=== PATIENT | female | born 1980 | race Caucasian/White ===

== ENCOUNTER → 2019-01-14 | Outpatient (CLI) | payer SELFPAY ==
[2019-01-14 12:49] LABS: BASO % 0.2 % (0.0-1.0); EOS # 0.1 10^3/uL (0.0-0.50); EOS % 1.1 % (0.0-3.0); HEMOGLOBIN 14.1 g/dl (12.0-15.5); LYMPH # 2.1 10^3/uL (1.5-4.5); LYMPH % 34.5 % (24.0-44.0); MEAN CORPUSCULAR HEMOGLOBIN 30.3 pg (27.0-33.0); MEAN CORPUSCULAR HGB CONC 33.6 g/dl (32.0-36.5); MEAN CORPUSCULAR VOLUME 90.1 fl (80.0-96.0); MONO # 0.5 10^3/uL (0.0-0.8); MONO % 7.7 % (0.0-5.0); NEUTROPHILS # 3.5 10^3/uL (1.8-7.7); NEUTROPHILS % 56.2 % (36.0-66.0); PLATELET COUNT, AUTOMATED 265 10^3/uL (150-450); RED BLOOD COUNT 4.66 10^6/uL (4.00-5.40); WHITE BLOOD COUNT 6.1 10^3/uL (4.0-10.0)
[2019-01-14 13:22] LABS: ERYTHROCYTE SEDIMENTATION RATE 12 mm/hr (0-20)
[2019-01-14 13:36] LABS: C REACTIVE PROTEIN QUANTITATIV < 0.30 MG/DL (0.00-0.30); RHEUMATOID FACTOR QUANT < 10.0 IU/ML (<15.0)
--- NOTE | 2019-01-14 13:58 | REP ---
REASON: Iritis. COMPARISON: No priors. FINDINGS: The superior mediastinal structures are midline. The cardiac silhouette is unremarkable in size, shape, and position. The diaphragmatic surfaces of the lungs are regular, and the costophrenic angles are clear. The pulmonary joiner are clear. The imaged osseous structures are intact. IMPRESSION: There is no acute cardiopulmonary disease. Electronically Signed by Alonzo Roque DO 01/14/2019 03:45 P
[2019-01-21 16:19] LABS: ANCA-ATYPICAL <1:20 titer (Neg:<1:20); ANGIOTENSIN 1 CONVERTING ENZYM 29 U/L (14-82); ANTINUCLEAR ANTIBODIES DIRECT Negative (Negative); CYCLIC CITRULLINATED PEPTIDE 6 units (0-19); CYTOPLASMIC NEUTROP AB ANCA-C <1:20 titer (Neg:<1:20); HLA-B27 Positive (.); Lyme Disease IgG Ab 18 kDa Ban Present (.); Lyme Disease IgG Ab 23 kDa Ban Absent (.); Lyme Disease IgG Ab 28 kDa Ban Present (.); Lyme Disease IgG Ab 30 kDa Ban Absent (.); Lyme Disease IgG Ab 39 kDa Ban Absent (.); Lyme Disease IgG Ab 41 kDa Ban Absent (.); Lyme Disease IgG Ab 45 kDa Ban Absent (.); Lyme Disease IgG Ab 58 kDa Ban Absent (.); Lyme Disease IgG Ab 66 kDa Ban Absent (.); Lyme Disease IgG Ab 93 kDa Ban Absent (.); Lyme Disease IgG West Blot Int Negative (.); Lyme Disease IgG/IgM Antibodie <0.91 ISR (0.00-0.90); Lyme Disease IgM Ab 23 kDa Ban Present (.); Lyme Disease IgM Ab 39 kDa Ban Absent (.); Lyme Disease IgM Ab 41 kDa Ban Absent (.); Lyme Disease IgM Ab Quantitati 1.14 index (0.00-0.79); Lyme Disease IgM West Blot Int Negative (.); PERINUCLEAR AB ANCA-P <1:20 titer (Neg:<1:20); TREPONEMA ANTIBODY IgM <0.9 I.V. (.)
== END ==
LOC: M LAB 12:01
PROVIDERS: ATTEND Ophthalmology
DX: H20.00 Unspecified acute and subacute iridocyclitis (principal)

== ENCOUNTER → 2019-03-16 | Outpatient (CLI) | payer OTHER ==
--- NOTE | 2019-03-16 08:55 | REP ---
Eight views cervical spine including flexion and extension views: 03/16/2019. Indication: Neck pain. Comparison: None. Findings: Very minimal straightening of the cervical lordosis is present. There is no acute fracture, subluxation or dislocation. There is no instability. Sequelae of surgical fixation of multiple facial bone fractures are noted. Impression: No fracture or evidence of instability. Electronically Signed by Rasta Carnes DO 03/16/2019 08:46 A
--- NOTE | 2019-03-16 17:54 | REP ---
Clinical: Nontraumatic left hip pain. Technique: Frontal view of the pelvis with neutral and frog lateral views of the left hip. Findings: Osseous structures and joint spaces are intact and normal. Hip joints appear symmetric on frontal pelvic radiograph. No acute fracture dislocation. No evidence for healed injury. No significant degenerative or congenital abnormalities are appreciated. Surrounding soft tissues are unremarkable. Impression: Normal pelvis and left hip series. Electronically Signed by Mahendra Horn MD 03/16/2019 05:46 P
--- NOTE | 2019-03-16 17:55 | REP ---
Clinical: Left hip pain. Technique: Four views of the bilateral sacroiliac joints. Findings: Bilateral sacroiliac joints and associated osseous structures are intact, symmetric, and normal for age. Impression: Normal bilateral sacroiliac joints. Electronically Signed by Mahendra Horn MD 03/16/2019 05:47 P
[2019-03-18 14:12] LABS: Lyme Disease IgG Ab 18 kDa Ban Present (.); Lyme Disease IgG Ab 23 kDa Ban Absent (.); Lyme Disease IgG Ab 28 kDa Ban Present (.); Lyme Disease IgG Ab 30 kDa Ban Absent (.); Lyme Disease IgG Ab 39 kDa Ban Absent (.); Lyme Disease IgG Ab 41 kDa Ban Absent (.); Lyme Disease IgG Ab 45 kDa Ban Absent (.); Lyme Disease IgG Ab 58 kDa Ban Absent (.); Lyme Disease IgG Ab 66 kDa Ban Absent (.); Lyme Disease IgG Ab 93 kDa Ban Absent (.); Lyme Disease IgG West Blot Int Negative (.); Lyme Disease IgG/IgM Antibodie <0.91 ISR (0.00-0.90); Lyme Disease IgM Ab 23 kDa Ban Present (.); Lyme Disease IgM Ab 39 kDa Ban Absent (.); Lyme Disease IgM Ab 41 kDa Ban Absent (.); Lyme Disease IgM Ab Quantitati 1.07 index (0.00-0.79); Lyme Disease IgM West Blot Int Negative (.)
== END ==
LOC: M LAB 07:10
PROVIDERS: ATTEND Internal Medicine Infectious Disease
DX: R76.8 Other specified abnormal immunological findings in serum (principal); M25.552 Pain in left hip; M54.2 Cervicalgia

== ENCOUNTER 2019-05-13 15:07 | Emergency (ER) | payer OTHER ==
[~2019-05-13] VITALS: Ht 162.6 cm; Wt 79.5 kg
[2019-05-13] MEDS ORDERED: ZOFR4TAB16 PO (15:15)
[2019-05-13] MEDS ORDERED: REGLAN (15:15)
[2019-05-13] MEDS ORDERED: ONDANSETRON 4MG/2ML VIAL (J2405) IV ONE (15:30)
[2019-05-13] MEDS ORDERED: NS 1,000 ML IV ONE ×2 (15:30)
[2019-05-13] MEDS ORDERED: ONDA4TAB6 PO (15:48)
[2019-05-13] MEDS ORDERED: KETOROLAC 30 MG/ML VIAL (J1885) IV ONE (16:30)
[2019-05-13 17:31] VITALS: BP 137/71
== END 2019-05-13 17:34 | disposition home or self-care (01) ==
LOC: M ED 15:07
DX: R11.2 Nausea with vomiting, unspecified (principal); R19.7 Diarrhea, unspecified; Z79.899 Other long term (current) drug therapy; Z88.1 Allergy status to other antibiotic agents
CPT/HCPCS: 96361; 96374; 96375; 99283; J1885; J2405

== ENCOUNTER → 2019-06-22 | Outpatient (REF) | payer OTHER ==
[~2019-06-22] MED LIST: ONDA4TAB6 PO; REGLAN; ZOFR4TAB16 PO
== END ==
LOC: M SFHCCLAY 14:42
PROVIDERS: ATTEND Family Medicine
DX: R53.83 Other fatigue (principal); Z80.0 Family history of malignant neoplasm of digestive organs; Z13.79 Encounter for other screening for genetic and chromosomal anomalies

== ENCOUNTER → 2019-06-23 | Outpatient (REF) | payer OTHER | LOC: M SFHCWAGY 13:38 | PROVIDERS: ATTEND Nurse Practitioner Women's Health | DX: Z12.4 Encounter for screening for malignant neoplasm of cervix (principal) ==

== ENCOUNTER → 2020-11-27 | Outpatient (REF) | payer OTHER | LOC: M LABDRAWC 15:52 | PROVIDERS: ATTEND Advanced Practice Midwife | DX: N91.2 Amenorrhea, unspecified (principal) ==

== ENCOUNTER 2020-12-06 00:49 | Emergency (ER) | payer OTHER ==
[~2020-12-06] VITALS: Ht 162.6 cm; Wt 85.5 kg
[2020-12-06 01:47] LABS: BASO % 0.2 % (0.0-1.0); EOS # 0.1 10^3/uL (0.0-0.5); EOS % 1.6 % (0.0-3.0); HEMATOCRIT 35.4 % (36.0-47.0); HEMOGLOBIN 11.5 g/dl (12.0-15.5); LYMPH # 2.3 10^3/uL (1.5-5.0); LYMPH % 27.8 % (24.0-44.0); MEAN CORPUSCULAR HEMOGLOBIN 29.8 pg (27.0-33.0); MEAN CORPUSCULAR HGB CONC 32.5 g/dl (32.0-36.5); MEAN CORPUSCULAR VOLUME 91.7 fl (80.0-96.0); MONO # 0.8 10^3/uL (0.0-0.8); MONO % 9.7 % (2.0-8.0); NEUTROPHILS % 60.5 % (36.0-66.0); PLATELET COUNT, AUTOMATED 242 10^3/uL (150-450); RED BLOOD COUNT 3.86 10^6/uL (4.00-5.40); WHITE BLOOD COUNT 8.3 10^3/uL (4.0-10.0)
[2020-12-06 03:09] LABS: ALBUMIN 3.3 GM/DL (3.2-5.2); ALT/SGPT 19 U/L (12-78); BILIRUBIN,DIRECT 0.1 MG/DL (0.0-0.2); BILIRUBIN,TOTAL 0.3 MG/DL (0.2-1.0); BLOOD UREA NITROGEN 11 MG/DL (7-18); CALCIUM LEVEL 8.5 MG/DL (8.5-10.1); CARBON DIOXIDE LEVEL 25 MEQ/L (21-32); CHLORIDE LEVEL 107 MEQ/L (98-107); CREATININE FOR GFR 0.79 MG/DL (0.55-1.30); GLOMERULAR FILTRATION RATE > 60.0 (>60); GLUCOSE, FASTING 91 MG/DL (70-100); HCG, SERUM QUANTITATIVE 34131 MIU/ML; LIPASE 75 U/L (73-393); POTASSIUM SERUM 4.3 MEQ/L (3.5-5.1); SODIUM LEVEL 140 MEQ/L (136-145); TOTAL PROTEIN 6.8 GM/DL (6.4-8.2)
--- NOTE | 2020-12-06 04:12 | REPVR ---
PROCEDURE INFORMATION: Exam: US First Trimester, Transabdominal and US , Transvaginal Exam date and time: 12/06/2020 2:29 AM Age: 40 years old Clinical indication: Lmp or gestational age (in weeks): 7w3d; Antepartum complications; Bleeding; ; Additional info: Vaginal bleeding TECHNIQUE: Imaging protocol: Real-time transabdominal obstetrical ultrasound of the maternal pelvis and a first trimester , less than 14 weeks 0 days, with image documentation. Transvaginal imaging was used for better evaluation of the fetus, adnexa, and/or cervix. COMPARISON: No relevant prior studies available. FINDINGS: Gestation: No evidence of intrauterine at this time. MATERNAL: Uterus: Uterus measures 10.5 x 5.6 x 6.1 cm. No myometrial mass. Endometrium is thickened measuring 1.9 cm. Heterogeneous echogenicity within the endocervical canal, likely blood products. Cervix otherwise unremarkable. Cervix: See "Uterus" finding. Right adnexa: Right ovary measures 3.6 x 2.6 x 3.8 cm and is unremarkable. Blood flow present within the right ovary. No adnexal mass. Left adnexa: Left ovary measures 4.9 x 4.2 x 4.8 cm and contains a 3.5 x 3.2 x 3.2 cm cyst, likely corpus luteum. Blood flow present within the left ovary. No adnexal mass. Intraperitoneal space: Trace free fluid. IMPRESSION: 1. No evidence of intrauterine at this time. Endometrium is thickened measuring 1.9 cm. Heterogeneous echogenicity within the endocervical canal, likely blood products. Differential considerations include failed or very early IUP which is not yet seen. Ectopic cannot be entirely excluded, however, no adnexal masses are visualized. Recommend clinical correlation as well as correlation with serial beta hCG and short-term follow-up ultrasound as clinically warranted. 2. Left ovarian cyst measuring 3.5 cm, likely corpus luteum. 3. Trace free fluid. Electronically signed by: Mahendra Escobar On 12/06/2020 04:11:38 AM
[2020-12-06] MEDS ORDERED: RHOGAM 300 MCG (1500 IU) INJ (J2790) IM ONE (04:40)
[2020-12-06 05:00] VITALS: BP 94/52
== END 2020-12-06 05:27 | disposition home or self-care (01) ==
LOC: M ED 00:49
DX: O03.4 Incomplete spontaneous abortion without complication (principal); Z87.59 Personal history of other complications of pregnancy, childbirth and the puerperium; O99.341 Other mental disorders complicating pregnancy, first trimester; O09.521 Supervision of elderly multigravida, first trimester; O34.81 Maternal care for other abnormalities of pelvic organs, first trimester; Z88.1 Allergy status to other antibiotic agents
CPT/HCPCS: 36415; 76801; 76817; 80048; 80076; 83690; 84702; 85025; 86850; 86900; 86901; 93976; 96372; 99284; J2790

== ENCOUNTER → 2021-02-08 | Outpatient (CLI) | payer OTHER ==
--- NOTE | 2021-02-08 09:43 | REP ---
INDICATION: ACUTE LEFT FOOT/ANKLE PAIN; TRAUMA. Persistent pain 3 weeks after a fall. COMPARISON: None. TECHNIQUE: Four views of the left foot. FINDINGS: Four views of the left foot demonstrate normal bones, joints, and soft tissues. No fracture or subluxation is seen. No opaque foreign body noted. There is a plantar calcaneal spur. IMPRESSION: Plantar heel spur. No fracture or subluxation. <Electronically signed by Alexis Chambers > 02/08/21 09
--- NOTE | 2021-02-08 09:43 | REP ---
INDICATION: ACUTE ANKLE PAIN. COMPARISON: None. TECHNIQUE: Four views of the right ankle are provided. FINDINGS: There is mild anterior soft tissue swelling. Ankle mortise is intact. No fracture or subluxation is seen. A plantar calcaneal spur is noted. IMPRESSION: Mild anterior soft tissue swelling. Plantar heel spur. No fracture seen. <Electronically signed by Alexis Chambers > 02/08/21 0904
== END ==
LOC: M CLY 09:05
PROVIDERS: ATTEND Family Medicine
DX: M25.572 Pain in left ankle and joints of left foot (principal); M77.32 Calcaneal spur, left foot; M79.89 Other specified soft tissue disorders

== ENCOUNTER → 2021-04-06 | Outpatient (CLI) | payer BC, OTHER ==
[~2021-04-06] MED LIST changes: +CELE10TA PO; +CITA40TA4 PO
== END ==
LOC: M LABSMTC 11:26
PROVIDERS: ATTEND Anesthesiology
DX: Z01.812 Encounter for preprocedural laboratory examination (principal); Z20.822 Contact with and (suspected) exposure to COVID-19

== ENCOUNTER 2021-04-11 10:14 | Day surgery (SDC) | payer BC ==
[~2021-04-11] VITALS: Ht 165.1 cm; Wt 85.3 kg
[~2021-04-11 10:14] MED LIST changes: +NS 1,000 ML IV ONE
--- OUTSIDE RECORDS SUMMARY | 2021-04-11 10:23 | CCD | Continuity of Care Document ---
Author Author Beth TALAMANTES [place] Organization Unknown Address [address] [place] [address], [address] [place] [address] Phone [phone] Care Team Providers Care Accordion Tuner Name Role Phone AUTM Unavailable Elaine Alan D.O. AUTM [phone] Problems Description No Information Available Social History Type Date Description Comments Sex Unknown ETOH Use Denies alcohol use Tobacco Use Start: Unknown Denies Smoking Recreational Drug Use Denies Drug Use Allergies, Adverse Reactions, Alerts Active Allergies Criticality Reaction | Severity Comments Date Keflex Unable to assess criticality Vomiting | Severe 2020 Medications Active Medications SIG Qnty Indications Ordering Provide r Date Suprep Bowel Prep Kit 17.5-3.13-1.6GM/177ML Solution take per doctor's bowel prep instructions. 354ml Z12.1 1 Mike Churchill, 11/22/2020 Celexa 40mg Tablets 1 tab po qd Unknown Immunizations Description No Information Available Vital Signs Date Vital Result Comment 02/26/2021 1:36pm BP Systolic 118 mmHg BP Diastolic 68 mmHg Body Temperature 98.4 F Height 65 inches 5'5" Weight 190.00 lb BMI (Body Mass Index) 31.6 kg/m2 Wiley Body Weight 125 lb Weight 86.184 kg BSA (Body Surface Area) 1.94 m2 2020 2:33pm BP Systolic 118 mmHg BP Diastolic 70 mmHg Height 65 inches 5'5" Weight 186.00 lb BMI (Body Mass Index) 30.9 kg/m2 Wiley Body Weight 125 lb Weight 84.370 kg BSA (Body Surface Area) 1.92 m2 Results Description No Information Available Procedures Date Code Description Status 02/26/2021 30978 Office/Outpatient Established Mo d MDM 30-39 Min Completed 2020 50426 Office/Outpatient New Moderate M DM 45-59 Minutes Completed Medical Devices Description No Information Available Encounters Type Date Location Provider Dx Diagnosis Office Visit 02/26/2021 1:30p [facility] ENZO Mcintyre K62.5 Hemorrhage of anus and rectum K59.00 Constipation, unspecified K64.9 Unspecified hemorrhoids Office Visit 2020 2:00p [facility] ENZO Mcintyre K62.5 Hemorrhage of anus and rectum K59.00 Constipation, unspecified K64.9 Unspecified hemorrhoids Assessments Date Code Description Provider 02/26/2021 K62.5 Hemorrhage of anus and rectum ENZO Monaco 02/26/2021 K59.00 Constipation, unspecified ENZO Hoffman 02/26/2021 K64.9 Unspecified hemorrhoids ENZO Graham 2020 K62.5 Hemorrhage of anus and rectum ENZO Monaco 2020 K59.00 Constipation, unspecified ENZO Hoffman 2020 K64.9 Unspecified hemorrhoids ENZO Graham Plan of Treatment Future Appointment(s):* 04/24/2021 11:00 am - ENZO Hoffman at [facility] * 04/11/2021 11:15 am - Mike Churchill DO at [facility] 02/26/2021 - ENZO Hoffman* K62.5 Hemorrhage of anus and rectum * K59.00 Constipation, unspecified * K64.9 Unspecified hemorrhoids Functional Status Description No Information Available Mental Status Description No Information Available Referrals Description No Information Available
--- OUTSIDE RECORDS SUMMARY | 2021-04-11 10:23 | CCD | Continuity of Care Document ---
Author Author Beth TALAMANTES [place] Organization Unknown Address [address] [place] [address], [address] [place] [address] Phone [phone] Care Team Providers Care Flume Maker Name Role Phone AUTM Unavailable Elaine Alan D.O. AUTM [phone] Problems Description No Information Available Social History [...] lb BMI (Body Mass Index) 31.6 kg/m2 Williams Body Weight 125 lb Weight 86.184 kg BSA (Body Surface Area) 1.94 m2 2020 2:33pm BP Systolic 118 mmHg BP Diastolic 70 mmHg Height 65 inches 5'5" Weight 186.00 lb BMI (Body Mass Index) 30.9 kg/m2 Williams Body Weight 125 lb Weight 84.370 kg BSA (Body Surface Area) 1.92 m2 Results Description No Information Available Procedures Date Code Description Status 2020 98940 Office/Outpatient New Moderate M DM 45-59 Minutes Completed Medical Devices Description No Information Available Encounters Type Date Location Provider Dx Diagnosis Office Visit 2020 2:00p [facility] ENZO Mcintyre K62.5 Hemorrhage of anus and rectum K59.00 Constipation, unspecified K64.9 Unspecified hemorrhoids Assessments Date Code Description Provider 2020 K62.5 Hemorrhage of anus and rectum ENZO Monaco 2020 K59.00 Constipation, unspecified ENZO Hoffman 2020 K64.9 Unspecified hemorrhoids ENZO Graham Plan of Treatment No Information Available Functional Status Description No Information Available Mental Status Description No Information Available Referrals Description No Information Available
--- OUTSIDE RECORDS SUMMARY | 2021-04-11 10:23 | CCD ---
Author Author [facility] Organization [facility] Address Unknown Phone Unavailable Care Team Providers Care Senior Quality Control Inspector Name Role Phone Ev RUSSO TENANT COORDINATOR Unavailable Unavailable GEIN, M ROXY TENANT COORDINATOR Unavailable Unavailable GEHERIN, M ROXY TENANT COORDINATOR Unavailable Unavailable GEIN, M ROXY TENANT COORDINATOR Unavailable Unavailable JULIAHERIN, M ROXY TENANT COORDINATOR Unavailable Unavailable GEHERIN, M ROXY TENANT COORDINATOR Unavailable Unavailable GEHERIN, M ROXY TENANT COORDINATOR Unavailable Unavailable GEHERIN, M ROXY TENANT COORDINATOR Unavailable Unavailable GEIN, M ROXY TENANT COORDINATOR Unavailable Unavailable GEHERIN, M ROXY TENANT COORDINATOR Unavailable Unavailable Ev Fernando PA-C Unavailable Unavailable Ev Fernando PA-C Unavailable Unavailable Jeramie Branham MD Unavailable Unavailable Jeramie Branham MD Unavailable Unavailable Jeramie Branham MD Unavailable Unavailable Jeramie Branham MD Unavailable Unavailable Jeramie Branham MD Unavailable Unavailable Jeramie Branham MD Unavailable Unavailable Jeramie Branham MD Unavailable Unavailable Jeramie Branham MD Unavailable Unavailable Jeramie Branham MD Unavailable Unavailable Yonas, Jeramie Mg MD Unavailable Unavailable Yonas, Jeramie Mg MD Unavailable Unavailable Yonas, Jeramie Mg MD Unavailable Unavailable Yonas, Jeramie Mg MD Unavailable Unavailable Yonas, Jeramie Mg MD Unavailable Unavailable Yonas, Jeramie Mg MD Unavailable Unavailable Yonas, Jeramie Mg MD Unavailable Unavailable Yonas, Jeramie Mg MD Unavailable Unavailable Yonas, Jeramie Mg MD Unavailable Unavailable Yonas, Jeramie Mg MD Unavailable Unavailable Yonas, Jeramie Mg MD Unavailable Unavailable Yonas, Jeramie Mg MD Unavailable Unavailable Yonas, A Haritha NIÑO Unavailable Unavailable Yonas, Jeramie Mg MD Unavailable Unavailable Yonas, Jeramie Mg MD Unavailable Unavailable Yonas, Jeramie Mg MD Unavailable Unavailable Yonas, Jeramie Mg MD Unavailable Unavailable Yonas, A Haritha NIÑO Unavailable Unavailable Yonas, A Haritha NIÑO Unavailable Unavailable Yonas, A Haritha NIÑO Unavailable Unavailable Yonas, A Haritha NIÑO Unavailable Unavailable Yonas, A Haritha NIÑO Unavailable Unavailable Yonas, A Haritha NIÑO Unavailable Unavailable Yonas, A Haritha NIÑO Unavailable Unavailable Yonas, A Haritha NIÑO Unavailable Unavailable Yonas, A Haritha NIÑO Unavailable Unavailable Yonas, A Haritha NIÑO Unavailable Unavailable Yonas, A Haritha NIÑO Unavailable Unavailable Yonas, A Haritha NIÑO Unavailable Unavailable Yonas, A Haritha NIÑO Unavailable Unavailable Yonas, Jeramie Mg MD Unavailable Unavailable Yonas, Jeramie Mg MD Unavailable Unavailable Yonas, A Haritha NIÑO Unavailable Unavailable Yonas, A Haritha NIÑO Unavailable Unavailable Yonas, A Haritha NIÑO Unavailable Unavailable Yonas, A Haritha NIÑO Unavailable Unavailable Yonas, A Haritha NIÑO Unavailable Unavailable Yonas, A Haritha NIÑO Unavailable Unavailable Yonas, Jeramie Mg MD Unavailable Unavailable Yonas, Jeramie Mg MD Unavailable Unavailable Yonas, Jeramie Mg MD Unavailable Unavailable Yonas, Jeramie Mg MD Unavailable Unavailable Yonas, Jeramie Mg MD Unavailable Unavailable Yonas, Jeramie Mg MD Unavailable Unavailable Yonas, Jeramie Mg MD Unavailable Unavailable Yonas, Jeramie Mg MD Unavailable Unavailable Yonas, Jeramie Mg MD Unavailable Unavailable Yonas, Jeramie Mg MD Unavailable Unavailable Yonas, Jeramie Mg MD Unavailable Unavailable Yonas, A Haritha NIÑO Unavailable Unavailable Yonas, A Haritha NIÑO Unavailable Unavailable Yonas, A Haritha NIÑO Unavailable Unavailable Yonas, A Haritha NIÑO Unavailable Unavailable Yonas, A Haritha NIÑO Unavailable Unavailable Yonas, Jeramie Mg MD Unavailable Unavailable Yonas, Jeramie Mg MD Unavailable Unavailable Yonas, Jeramie Mg MD Unavailable Unavailable Yonas, Jeramie Mg MD Unavailable Unavailable Yonas, Jeramie Mg MD Unavailable Unavailable Yonas, Jeramie Mg MD Unavailable Unavailable Yonas, Jeramie Mg MD Unavailable Unavailable Yonas, Jeramie Mg MD Unavailable Unavailable Yonas, Jeramie Mg MD Unavailable Unavailable Yonas, Jeramie Mg MD Unavailable Unavailable Yonas, Jeramie Mg MD Unavailable Unavailable Yonas, Jeramie Mg MD Unavailable Unavailable Yonas, Jeramie Mg MD Unavailable Unavailable Yonas, Jeramie Mg MD Unavailable Unavailable Yonas, Jeramie Mg MD Unavailable Unavailable Yonas, Jeramie Mg MD Unavailable Unavailable Yonas, Jeramie Mg MD Unavailable Unavailable Yonas, Jeramie Mg MD Unavailable Unavailable Yonas, Jeramie Mg MD Unavailable Unavailable Dwello PA PA, Angie Unavailable Unavailable Dwello PA PA, Angie Unavailable Unavailable Dwello PA PA, Angie Unavailable Unavailable Dwello PA PA, Angie Unavailable Unavailable Dwello PA PA, Angie Unavailable Unavailable Dwello PA PA, Angie Unavailable Unavailable Dwello PA PA, Angie Unavailable Unavailable NEWBY, A MASON MD Unavailable Unavailable NEWBY, Jeramie MASON MD Unavailable Unavailable NEWBY, Jeramie MASON MD Unavailable Unavailable NEWBY, Jeramie MASON Unavailable Unavailable NEWBY, Jeramie MASON Unavailable Unavailable NEWBY, Jeramie MASON Unavailable Unavailable NEWBY, Jeramie MASON MD Unavailable Unavailable NEWBY, Jeramie MASON Unavailable Unavailable NEWBY, Jeramie MASON Unavailable Unavailable NEWBY, Jeramie MASON Unavailable Unavailable NEWBY, Jeramie MASON Unavailable Unavailable NEWBY, Jeramie MASON Unavailable Unavailable NEWBY, Jeramie MASON MD Unavailable Unavailable NEWBY, Jeramie MASON MD Unavailable Unavailable NEWBY, Jeramie MASON Unavailable Unavailable NEWBY, Jeramie MASON Unavailable Unavailable NEWBY, Jeramie MASON Unavailable Unavailable NEWBY, Jeramie MASON Unavailable Unavailable NEWBY, Jeramie MASON Unavailable Unavailable NEWBY, Jeramie MASON Unavailable Unavailable NEWBY, Jeramie MASON Unavailable Unavailable NEWBY, Jeramie ENGLISHMASON Unavailable Unavailable NEWBY, Jeramie MASON Unavailable Unavailable NEWBY, Jeramie ENGLISHMASON Unavailable Unavailable NEWBY, Jeramie MASON Unavailable Unavailable NEWBY, Jeramie MASON Unavailable Unavailable NEWBY, Jeramie MASON Unavailable Unavailable NEWBY, Jeramie MASON Unavailable Unavailable NEWBY, Jeramie MASON Unavailable Unavailable NEWBY, Jeramie ENGLISHMASON Unavailable Unavailable Adis Costa MD Unavailable Unavailable Adis Costa MD Unavailable Unavailable Adis Costa MD Unavailable Unavailable Adis Costa MD Unavailable Unavailable Adis Costa MD Unavailable Unavailable Adis Costa MD Unavailable Unavailable Adis Costa MD Unavailable Unavailable Adis Costa MD Unavailable Unavailable Adis Costa MD Unavailable Unavailable Adis Costa MD Unavailable Unavailable Adis Costa MD Unavailable Unavailable Adis Costa MD Unavailable Unavailable Adis Costa MD Unavailable Unavailable Adis Costa MD Unavailable Unavailable Adis Costa MD Unavailable Unavailable Adis Costa MD Unavailable Unavailable Adis Costa MD Unavailable Unavailable Adis Costa MD Unavailable Unavailable Adis Costa MD Unavailable Unavailable Adis Costa MD Unavailable Unavailable Adis Costa MD Unavailable Unavailable Adis Costa MD Unavailable Unavailable Adis Costa MD Unavailable Unavailable Adis Costa MD Unavailable Unavailable Adis Costa MD Unavailable Unavailable Cheng, L Anne RPA Unavailable Unavailable Cheng, L Anne RPA Unavailable Unavailable Cheng, L Anne RPA Unavailable Unavailable Cheng, L Anne RPA Unavailable Unavailable Cheng, L Anne RPA Unavailable Unavailable Cheng, L Anne RPA Unavailable Unavailable Cheng, L Anne RPA Unavailable Unavailable Cheng, L Anne RPA Unavailable Unavailable Cheng, L Anne RPA Unavailable Unavailable Cheng, L Anne RPA Unavailable Unavailable Cheng, L Anne RPA Unavailable Unavailable Cheng, L Anne RPA Unavailable Unavailable Cheng, L Anne RPA Unavailable Unavailable Cheng, L Anne RPA Unavailable Unavailable Cheng, L Anne RPA Unavailable Unavailable Cheng, L Anne RPA Unavailable Unavailable Cheng, L Anne RPA Unavailable Unavailable Cheng, L Anne RPA Unavailable Unavailable Cheng, L Anne RPA Unavailable Unavailable Cheng, L Anne RPA Unavailable Unavailable Cheng, L Anne RPA Unavailable Unavailable Cheng, L Anne RPA Unavailable Unavailable Cheng, L Anne RPA Unavailable Unavailable Cheng, L Anne RPA Unavailable Unavailable Cheng, L Anne RPA Unavailable Unavailable Cheng, L Anne RPA Unavailable Unavailable Cheng, L Anne RPA Unavailable Unavailable Cheng, L Anne RPA Unavailable Unavailable Cheng, L Anne RPA Unavailable Unavailable Cheng, L Anne RPA Unavailable Unavailable Cheng, L Anne RPA Unavailable Unavailable Cheng, L Anne RPA Unavailable Unavailable Re-disclosure Warning The records that you are about to access may contain information from federally-assisted alcohol or drug abuse programs. If such information is present, then the following federally mandated warning applies: This information has been disclosed to you from records protected by federal confidentiality rules (42 CFR part 2). The federal rules prohibit you from making any further disclosure of this information unless further disclosure is expressly permitted by the written consent of the person to whom it pertains or as otherwise permitted by 42 CFR part 2. A general authorization for the release of medical or other information is NOT sufficient for this purpose. The Federal rules restrict any use of the information to criminally investigate or prosecute any alcohol or drug abuse patient.The records that you are about to access may contain highly sensitive health information, the redisclosure of which is protected by Article 27-F of the [facility] Public Health law. If you continue you may have access to information: Regarding HIV / AIDS; Provided by facilities licensed or operated by the [facility] Office of Mental Health; or Provided by the [facility] Office for People With Developmental Disabilities. If such information is present, then the following [facility] mandated warning applies: This information has been disclosed to you from confidential records which are protected by state law. State law prohibits you from making any further disclosure of this information without the specific written consent of the person to whom it pertains, or as otherwise permitted by law. Any unauthorized further disclosure in violation of state law may result in a fine or detention sentence or both. A general authorization for the release of medical or other information is NOT sufficient authorization for further disc losure. Allergies and Adverse Reactions Type Description Substance Reaction Status Data Source(s ) Drug allergy cephalexin cephalexin Nausea/Vomit/Gastric MO [facility] Propensity to adverse reactions cephalexin Cephalexin Acti ve [facility] ([facility]) Encounters Encounter Providers Location Date Indications Data Source(s ) Outpatient Attender: Jocelyn Costa MD 1 12:20:06 PM EDT - 03/05/2021 01:20:04 PM EDT [facility] ([facility]) Outpatient Attender: Anne Vegas/Luis/Ramirez/R ruddy 02/26/2021 01:30:00 PM EDT [facility] ([facility]) Emergency Attender: MASON NEWBY MDAttender: Kavin macedo PA-C 01/14/2021 06:49:00 AM EDT - 01/14/2021 08:00:00 AM EDT COUGH,R/O ESSIE Jenkins [facility] COUGH,R/O COVID Patient discharged. Attender: Haritha Branham MD JERZY Wells 05/2021 12:53:00 PM EDT - 12/11/2020 12:53:00 PM EDT [facility] ([facility]) Attender: Angie GIRALDO JERZY Wells 10/2020 10:45:00 AM EDT - 12/05/2020 10:45:00 AM EDT Encntr screen for infections w sexl mode of transmissOther sex counselingEncounter for elective termination of pregnancyProblems related to unwanted pregnancyEncounter for oth general cnsl and advice on contraceptionEncounter for test, result positive [facility] ([facility]) Encntr screen for infections w sexl mode of transmiss Other sex counseling Encounter for elective termination of pr egnancy Problems related to unwanted Encounter for oth general cnsl and advic e on contraception Encounter for test, result pos itive Outpatient Attender: Anne Vegas/Luis/Ramirez/Lizeth eindl 2020 02:00:00 PM EDT [facility] ([facility]) Outpatient Attender: Jocelyn Costa MD 0 07/21/2020 02:35:16 PM EST - 07/21/2020 03:50:31 PM EST [facility] ([facility]) Outpatient Attender: ROXY RUSSO NP 01:24:25 PM EST - 05/13/2019 01:43:27 PM EST [facility] ([facility]) Immunizations Vaccine Date Status Description Data Source(s) COVID-19 VACCINE Arian 02/19/2021 12:00:00 AM EDT completed [facility] Vaccine Series Complete: YESThis Data wa s Submitted to [facility]. INFLUENZA VIRUS VACCINE QUADRIVALENT 2019- (6 MOS AN D UP) 05/08/2020 12:00:00 AM EST completed [facility] Medications Medication Brand Name Start Date Product Form Dose Route Admi nistrative Instructions Pharmacy Instructions Status Indications Reaction Description Data Source(s) SUPREP BOWEL PREP KIT 17.5-3.13-1.6 gram SODIUM, POTASSIUM,M AG SULFATES 03/27/2021 12:00:00 AM EDT [place] [address] 'S PREP INSTRUCTIONS TAKE PER 'S PREP INSTRUCTIONS SOLD: 04/03/2021 [facility] Citalopram 40 MG Oral Tablet CITALOPRAM HYDROBROMIDE 02/18/2021 12:00:00 AM EDT tablet 90 TAKE ONE TABLET BY MOUTH EVERY D AY TAKE ONE TABLET BY MOUTH EVERY DAY SOLD: 02/20/2021 [facility] Citalopram 20 MG Oral Tablet Citalopram 01/14/2021 07:08:09 AM EDT 20 MG active [facility] Ondansetron 4 MG Oral Tablet ondansetron HCl 4 mg tabl et ondansetron HCl 4 mg tablet 12/05/2020 12:00:00 AM EDT active 1 tab po every 4 hours prn [facility] ([facility]) Ibuprofen 800 MG Oral Tablet ibuprofen 800 mg tablet ibuprof en 800 mg tablet 12/05/2020 12:00:00 AM EDT active 1 tab po every 8 hours prn [facility] ([facility]) Acetaminophen 300 MG / Codeine Phosphate 30 MG Oral Ta blet 300-30 mg ACETAMINOPHEN WITH CODEINE 12/05/2020 12:00:00 AM EDT tablet 10 TAKE ONE TO TWO TABLETS BY MOUTH EVERY 4 HOURS NEEDED FOR PAIN MAXIMUM DAILY DOSE = 8 TAKE ONE TO TWO TABLETS BY MOUTH EVERY 4 HOURS NEEDED FOR PAIN MAXIMUM DAILY DOSE = 8 SOLD: 12/05/2020 [facility] Misoprostol 0.2 MG Oral Tablet misoprostol 200 mcg tab let misoprostol 200 mcg tablet 12/05/2020 12:00:00 AM EDT completed 4 tabs intravaginally within the next 48 hours [facility] ([facility]) 4 mg 12/05/2020 12:00:00 AM EDT tablet 9 TAKE ONE TABLET BY MOUTH EVERY 4 HOURS NEEDED TAKE ONE TABLET BY MOUTH EVERY 4 HOURS NEEDED SOLD: 12/05/2020 [facility] 800 mg 12/05/2020 12:00:00 AM EDT tablet 10 TAKE ONE TABLET BY MOUTH EVERY 8 HOURS NEEDED TAKE ONE TABLET BY MOUTH EVERY 8 HOURS NEEDED SOLD: 12/05/2020 [facility] Mifepristone 200 MG Oral Tablet [Mifeprex] Mifeprex 20 0 mg tablet Mifeprex 200 mg tablet 12/05/2020 12:00:00 AM EDT complete d mifepristone 200 MG Oral Tablet [Mifeprex] [facility] ([facility]) Acetaminophen 300 MG / Codeine Phosphate 30 MG Oral Tablet acetaminophen 300 mg- codeine 30 mg tablet acetaminophen 300 mg-codeine 30 mg tablet 12/05/2020 12:00:00 AM EDT completed 1-2 tabs po every 4 hours prn pain MDD 8 [facility] ([facility]) Suprep Bowel Prep Kit Suprep Bowel Prep Kit 11/22/2020 12:00:00 AM EDT active [facility] ([facility] ) Citalopram 40 MG Oral Tablet CITALOPRAM HYDROBROMIDE 07/20/2020 12:00:00 AM EST tablet 30 TAKE ONE TABLET BY MOUTH EVERY D AY TAKE ONE TABLET BY MOUTH EVERY DAY SOLD: 01/19/2021 [facility] Citalopram 40 MG Oral Tablet CITALOPRAM HYDROBROMIDE 07/20/2020 12:00:00 AM EST tablet 30 TAKE ONE TABLET BY MOUTH EVERY D AY TAKE ONE TABLET BY MOUTH EVERY DAY SOLD: 12/19/2020 [facility] Citalopram 40 MG Oral Tablet CITALOPRAM HYDROBROMIDE 07/20/2020 12:00:00 AM EST tablet 30 TAKE ONE TABLET BY MOUTH EVERY D AY TAKE ONE TABLET BY MOUTH EVERY DAY SOLD: 07/22/2020 [facility] Citalopram 40 MG Oral Tablet CITALOPRAM HYDROBROMIDE 07/20/2020 12:00:00 AM EST tablet 30 TAKE ONE TABLET BY MOUTH EVERY D AY TAKE ONE TABLET BY MOUTH EVERY DAY SOLD: 09/21/2020 [facility] Citalopram 40 MG Oral Tablet CITALOPRAM HYDROBROMIDE 07/20/2020 12:00:00 AM EST tablet 7 TAKE ONE TABLET BY MOUTH EVERY D AY TAKE ONE TABLET BY MOUTH EVERY DAY SOLD: 09/16/2020 [facility] Citalopram 40 MG Oral Tablet CITALOPRAM HYDROBROMIDE 07/20/2020 12:00:00 AM EST tablet 7 TAKE ONE TABLET BY MOUTH EVERY D AY TAKE ONE TABLET BY MOUTH EVERY DAY SOLD: 09/06/2020 [facility] Citalopram 40 MG Oral Tablet CITALOPRAM HYDROBROMIDE 07/20/2020 12:00:00 AM EST tablet 7 TAKE ONE TABLET BY MOUTH EVERY D AY TAKE ONE TABLET BY MOUTH EVERY DAY SOLD: 07/26/2020 [facility] Citalopram 40 MG Oral Tablet CITALOPRAM HYDROBROMIDE 07/20/2020 12:00:00 AM EST tablet 30 TAKE ONE TABLET BY MOUTH EVERY D AY TAKE ONE TABLET BY MOUTH EVERY DAY SOLD: 11/01/2020 [facility] Citalopram 20 MG Oral Tablet CITALOPRAM HYDROBROMIDE 09/20/2019 12:00:00 AM EDT tablet 90 TAKE ONE TABLET BY MOUTH EVERY D AY TAKE ONE TABLET BY MOUTH EVERY DAY SOLD: 03/30/2020 [facility] Insurance Providers Payer name Policy type / Coverage type Policy ID Covered green party ID Covered green party's relationship to larose Policy Larose Plan Information [facility] [employer]. [id number] Self [id number] [employer] emp [id number] Employee [id number] [employer] [facility] [employer] STAFF[employer] emp [id number] Employee [id number] RPR- Needs Payer Match [id number] Spouse [id number] [facility] Preferred Provider Org. [id number] [address] [id number] [facility] Commercial [employer] Co. [id number] Self [id number] SELF PAY ONLY [id number] SP [id number] [employer] [place] [id number] SP [id number] [employer] [place] O [id number] S [id number] [employer] [place] [id number] SP [id number] [employer] [place] O [id number] [id number] [facility] [id number] SP [id number] [employer] O [id number] S [id number] [facility] [id number] [employer] O UNAVAILABLE S UNAVAILABLE [facility] [id number] SP [id number] [facility] [id number] SP [id number] [employer] [id number] SP [id number] [employer] [place] [id number] SP [id number] [employer] [place] [id number] SP [id number] Problems, Conditions, and Diagnoses No Information Surgeries/Procedures Procedure Description Date Indications Data Source(s) OFFICE OUTPATIENT VISIT 25 MINUTES 02/26/2021 12:00:00 AM EDT [facility] ([facility], ) SARS-CoV-2 Rapid RNA (RT-PCR) 01/14/2021 12:00:[address] [facility] HEMOGLOBIN 12/05/2020 12:00:00 AM EDT - 12/05/2020 1 2:00:00 AM EDT [facility] ([facility]) URINE TEST 12/05/2020 12:00:00 AM EDT - 12/05/2020 12:00:00 AM EDT [facility] ([facility]) OFFICE VISIT, NEW 12/05/2020 12:00:00 AM EDT - 021 12:00:00 AM EDT [facility] ([facility]) CVR Kiln Hand.Svc. STI / H 12/05/2020 12:00:00 AM EDT - 12/05/2020 12:00:00 AM EDT [facility] ([facility]) CVR Kiln Hand.Svc. Contraceptive 12/05/2020 12 :00:00 AM EDT - 12/05/2020 12:00:00 AM EDT [facility] ([facility]) CVR Med.Svc. Height/Weight 12/05/2020 12 :00:00 AM EDT - 12/05/2020 12:00:00 AM EDT [facility] ([facility]) CVR Blood Pressure 12/05/2020 12:00:00 AM EDT - 2020 12:00:00 AM EDT [facility] ([facility]) Lab RH Factor With Blood Type 12/05/2020 12:00:00 AM EDT - 12/05/2020 12:00:00 AM EDT [facility] ([facility]) CHORIONIC GONADOTROPIN TEST 12/05/2020 1 2:00:00 AM EDT - 12/05/2020 12:00:00 AM EDT [facility] ([facility]) N.GONORRHOEAE, URINE 12/05/2020 12:00:00 AM EDT - 12/05/2020 12:00:00 AM EDT [facility] ([facility]) CHYLMD TRACH, URINE 12/05/2020 12:00:00 AM EDT - 12/05 12:00:00 AM EDT [facility] ([facility]) Misoprostol, oral, 200 mcg 4 Tabs MAB 12:00:00 AM EDT - 12/05/2020 12:00:00 AM EDT [facility] ([facility]) Mifeprex, oral, 200 mg 12/05/2020 12:00: 00 AM EDT - 12/05/2020 12:00:00 AM EDT [facility] ([facility]) CAPILLARY BLOOD DRAW 12/05/2020 12:00:00 AM EDT - 12/05/2020 12:00:00 AM EDT [facility] ([facility]) ROUTINE VENIPUNCTURE 12/05/2020 12:00:00 AM EDT - 12/05/2020 12:00:00 AM EDT [facility] ([facility]) OFFICE OUTPATIENT NEW 45 MINUTES 2020 12:00:00 A M EDT [facility], ) Results ID Date Data Source [id number] 04/06/2021 11:25:00 AM EDT [facility] Name Value Range Interpretation Code Description Data Tiffanie rce(s) Supporting Document(s) SARS-CoV-2 (COVID-19) RNA [Presence] in Respiratory specimen by ERICA with probe detection Not Detected [facility] This lab was ordered by [facility] and reported by [employer] ID Date Data Source [id number] 01/14/2021 07:53:[address] 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 She recently came back from vacation in [place]. She has chosen not to be vaccinated. Yesterday she had some nausea and feeling of unwellness and over the nighttime has developed paroxysmal cough and progressive feeling of viral syndrome. She was at work in the emergency room when we noticed her coughing and decided to have her tested for COVID-19 which is now positive. Outside of the cough and minor systemic symptoms she has no other problems. O2 saturation is 95%. Allergies/Home Meds Allergies Allergy/AdvReac Type Severity Reaction Status Date / Time cephalexin [From Keflex] Allergy Intermediate Nausea/Vomi Verified 01/14/21 07:08 t/Gastric Home Medications Medication Instructions Recorded Confirmed Last Taken Type citalopram 20 mg PO DAILY 01/14/21 01/14/21 01/14/21 History PMH (from Triage) Patient Medical History PMH Reviewed/Updated as Needed: Yes Hx Drug Resistant Infections Hx Other Resistant Infection?: No Isolation: Airborne Hx Recent Travel Nurse screening for coronavirus: Recent Travel outside the No country (where) Has patient experienced Yes coronavirus symptoms Coronavirus symptoms Shortness of breath,Fatigue experienced Social History Are you in a relationship with/Does anyone hit you, yell/swear at you, steal from you?: No Substance Use Second Hand Smoke Exposure: No Tobacco Use Hx Chewing Tobacco Use: No Vaccination History Hx/Date of Tetanus, Diphtheria Vaccination: Yes Hx/Date of Influenza Vaccination: No Hx/Date of Pneumococcal Vaccination: No Immunizations Up to Date: Yes ROS Review of Systems ROS Narrative: Cough nausea no fever yet no shortness of breath. Constitutional: Denies fever Eyes: Denies vision change, eye discharge/drng or redness ENT: Denies mouth pain or mouth swelling Respiratory: Reports cough; Denies sputum, SOB w/exertion rest, SOB with excertion, SOB at rest orwheezing Cardiovascular: Denies chest pain or palpitations Gastrointestinal: Reports No Symptoms/Complaints; Denies nausea, vomiting or abdominal pain Musculoskeletal: Denies neck pain, shoulder pain or muscle weakness Skin/Breasts: Denies rash or lesions Neurologic: Denies weakness, numbness or headache Psychiatric: Reports No Symptoms/Complaints Endocrine: Reports No Symptoms/Complaints Hematological/Lymphatic: Reports No Symptoms/Complaints Allergic/Immunologic: Reports No Symptoms/Complaints PFSH Social History Does the Patien t have a Healthcare Proxy: No Does Patient have a DNR?: No Does Patient have a Living Will?: No Physical Exam General Physical Exam Narrative: Healthy-appearing dry frequent coughing. No wheezing Limitations: no limitations Head Head exam: Present atraumatic and normocephalic Eye Eye exam: Present normal apperance, PERRL and EOMI; Absent scleral icterus or conjunctival injection Pupils: Present normal accommodation ENT ENT exam: Present normal exam and normal orophraynx Neck Neck exam: Present normal inspection and full ROM; Absent tenderness or meningismus Respiratory Respiratory exam: Present normal lung sounds bilaterally; Absent respiratory distress, wheezes, rales, rhonchi or chest wall tenderness Cardiovascular Cardiovascular Exam: Present regular rate, normal rhythm, normal heart sounds and no murmur GI/Abdominal GI/Abdominal exam: Present Abd soft, bowel sounds present all quadrents, soft and normal bowel sounds; Absent distended or tenderness Rectal Rectal exam: Present deferred Extremities Exam Extremities exam: Present normal inspection, Full ROM without tenderness, capillary refill brisk, full ROM and capillary refill brisk; Absent tenderness, pedal edema or calf tenderness Back Exam Back exam: Present normal inspection and full ROM Neurological Exam Neurological exam: Present alert, oriented X3, CN II-XII intact and normal gait Psychiatric Psychiatric exam: Present normal affect Skin Skin exam: Present warm, dry and intact; Absent petechiae Vital Signs Vital Signs: Vital Signs 01/14/21 06:50 Temperature 98 F Pulse Rate 98 Respiratory Rate 18 Blood Pressure 131/75 O2 Sat by Pulse Oximetry 95 MDM (comprehensive) Lab Data Labs: Microbiology 01/14/21 07:01 Nasopharyngeal SARS-CoV-2 Rapid RNA (RT-PCR) - Final SARS-CoV-2 detected Influenza A Not Detected Influenza B Not Detected RSV Not Detected Medical Decision Making Free Text/Narative:: She has early COVID-19. Obviously she cannot work in the emergency room setting. She can be discharged quarantine for 14 days and return with employee health clearance. Discharge Plan Admission/Discharge Dx Primary DC Diagnosis: covid 19 ED Provider: Mason Newby ED Status: Ready for Discharge Time Seen by Provider: 01/14/21 06:57 Triaged At: 01/14/21 06:50 Discharge Detail Disposition: Home, Self-Care Med Rec New Prescription s: No Action citalopram 20 mg tablet 20 mg PO DAILY RF: 0 Forms Forms Work Release: Work/School/Activ/Gym Release Follow Up Care/Instructions Diet/Activity/Wound Care..: Your covid 19 test was positive. Please quarantine for 14 days. Return to the ER for worsening symptoms or concern. *Discharge Patient* Discharge Orders: Discharge Order (Routine); Ordered 01/14/21 Ordered By: Mason Newby Report Signers: <Electronically signed by Mason Newby MD> Mason Newby MD 01/14/21 0831 Mason Newby MD SIGNATURE DA Report Cosigners: D: MICHAEL 01/14/21 0753 T: MICHAEL 01/14/21 0753 CC: No Family PHYS Provided Name Value Range Interpretation Code Description Data Tiffanie rce(s) Supporting Document(s) ID Date Data Source [id number] 01/14/2021 07:45:[address] [facility] NORMAL RESULT IS "Not Detected"Cepheid S ARS-CoV-2,FLU/RSV is Multiplex real time RT-PCRNegative results do not preclude SARS-COV-2, influenza orRSV infection and should not be used as the sole basis fortreatment or other patient management decisions.False negative results may occur if virus is present atlevels below the analytical limit of detection.This test has been authorized by FDA under an EUA for use [facility]. [facility] laboratoriesSARS-rel CoV RNA Resp Ql ERICA+probeFLUAV RNA Resp Ql ERICA+probeFLUBV RNA Resp Ql ERICA+probeRSV RNA Resp Ql ERICA+probe Name Value Range Interpretation Code Description Data Tiffanie rce(s) Supporting Document(s) ID Date Data Source [id number] 01/14/2021 07:01:00 AM EDT [facility] Name Value Range Interpretation Code Description Data Tiffanie rce(s) Supporting Document(s) Cepheid SARS/FLU/RSV RT-PCR SARS-CoV-2 detected [facility] This lab was ordered by [facility] and reported by [facility]. ID Date Data Source [id number] 12/05/2020 11:32:29 AM EDT [facility] ([facility]) Name Value Range Interpretation Code Description Data Tiffanie rce(s) Supporting Document(s) 10.00 gm/dL Hemoglobin [facility] ([facility]) ID Date Data Source [id number] 12/05/2020 11:31:44 AM EDT [facility] ([facility]) Name Value Range Interpretation Code Description Data Tiffanie rce(s) Supporting Document(s) PositiveLot: [id number]: 06/01/2022 Abnormal (applies to non-numeric results) High Sensitivity Urine Test [facility] ([facility]) Procedure Social History Code Duration Value Status Description Data Source(s ) Smoking 12/11/2020 12:00:00 AM EDT Never smoker completed Never s moker [facility] ([facility]) Vital Signs ID Date Data Source UNK Name Value Range Interpretation Code Description Data Source(s) Systolic blood pressure 118 mm[Hg] 118 mm[Hg] [facility] Diastolic blood pressure 68 mm[Hg] 68 mm[Hg] [facility] Body temperature 98.4 [degF] 98.4 [degF] [facility] ([facility]) Body weight 86.184 kg 86.184 kg [facility] ([facility]) Body height 65 [in_i] 65 [in_i] [facility] ([facility]) 5'5" [place] body weight 125 [lb_av] 125 [lb_av] [facility] ([facility]) Body surface area Derived from formula 1.94 m2 1.94 m2 [facility] ([facility]) Body weight 190.00 [lb_av] 190.00 [lb_av] [facility] ([facility]) Body mass index (BMI) [Ratio] 31.6 kg/m2 31.6 k g/m2 [facility] ([facility]) Body height 162.56 cm 162.56 cm [facility] ([facility] Body weight 82.010 kg 82.010 kg [facility] ([facility]) Systolic blood pressure 110 mm[Hg] 110 mm[Hg] N [facility] ([facility]) Diastolic blood pressure 67 mm[Hg] 67 mm[Hg] [facility] ([facility]) Body mass index (BMI) [Ratio] 31.03 kg/m2 Overweight 31.03 kg/m2 [facility] ([facility]) Systolic blood pressure 118 mm[Hg] 118 mm[Hg] M [facility] ([facility]) Body height 65 [in_i] 65 [in_i] [facility] ([facility]) 5'5" Diastolic blood pressure 70 mm[Hg] 70 mm[Hg] [facility] ([facility]) Body weight 186.00 [lb_av] 186.00 [lb_av] [facility] ([facility]) Body mass index (BMI) [Ratio] 30.9 kg/m2 30.9 k g/m2 [facility] ([facility]) Body weight 84.370 kg 84.370 kg [facility] ([facility]) [place] body weight 125 [lb_av] 125 [lb_av] [facility] ([facility]) Body surface area Derived from formula 1.92 m2 1.92 m2 [facility] ([facility]) Body height 65 [in_i] 65 [in_i] [facility] ([facility]) 5'5" Body weight 186.00 [lb_av] 186.00 [lb_av] [facility] ([facility]) Body mass index (BMI) [Ratio] 30.9 kg/m2 30.9 k g/m2 [facility] ([facility]) [place] body weight 125 [lb_av] 125 [lb_av] [facility] ([facility]) Body weight 84.370 kg 84.370 kg [facility] ([facility]) Body surface area Derived from formula 1.92 m2 1.92 m2 [facility] ([facility]) Patient Treatment Plan of Care Planned Activity Planned Date Details Description Data Source (s) Acetaminophen 300 MG / Codeine Phosphate 30 MG Oral Ta blet 12/05/2020 12:00:00 AM EDT [facility] Misoprostol 0.2 MG Oral Tablet 12/05/2020 12:00:00 AM EDT [facility] ([facility]) Mifepristone 200 MG Oral Tablet [Mifeprex] 12/05/2020 12:00:00 AM E DT [facility] ([facility]) Ondansetron 4 MG Oral Tablet 12/05/2020 12:00:00 AM EDT [facility] ([facility]) Ibuprofen 800 MG Oral Tablet 12/05/2020 12:00:00 AM EDT [facility] ([facility])
[2021-04-11] MEDS ORDERED: LIDOCAINE 2% 100MG/5ML SDV (FOR ANES.) As Ordered ONE (11:36)
[2021-04-11] MEDS ORDERED: propofoL 500 MG/50 ML VIAL As Ordered ONE (11:36)
--- NOTE | 2021-04-11 11:55 | ROOR ---
Patient Name: Beht Crane Procedure Date: 04/11/2021 11:34 AM Date of : 1980 Age: 40 Room: [facility] Gender: Female Note Status: Finalized Procedure: Colonoscopy Indications: Hematochezia Providers: Mike Churchill DO Referring MD: Elaine AYALA DO Requesting Provider: Medicines: Propofol per Anesthesia Complications: No immediate complications. Procedure: Pre-Anesthesia Assessment: - Prior to the procedure, a History and Physical was performed, and patient medications and allergies were reviewed. The patient is competent. The risks and benefits of the procedure and the sedation options and risks were discussed with the patient. All questions were answered and informed consent was obtained. Patient identification and proposed procedure were verified by the physician, the nurse, the anesthesiologist and the in shop service technician in the endoscopy suite. Mental Status Examination: alert and oriented. Airway Examination: normal oropharyngeal airway and neck mobility. Respiratory Examination: clear to auscultation. CV Examination: normal. Prophylactic Antibiotics: The patient does not require prophylactic antibiotics. Prior Anticoagulants: The patient has taken no previous anticoagulant or antiplatelet agents. ASA Grade Assessment: II - A patient with mild systemic disease. After reviewing the risks and benefits, the patient was deemed in satisfactory condition to undergo the procedure. The anesthesia plan was to use monitored anesthesia care (MAC). Immediately prior to administration of medications, the patient was re-assessed for adequacy to receive sedatives. The heart rate, respiratory rate, oxygen saturations, blood pressure, adequacy of pulmonary ventilation, and response to care were monitored throughout the procedure. The physical status of the patient was re-assessed after the procedure. The Colonoscope was introduced through the anus and advanced to the cecum, identified by appendiceal orifice and ileocecal valve. The colonoscopy was performed without difficulty. The patient tolerated the procedure well. Findings: Non-bleeding internal hemorrhoids were found during retroflexion. The hemorrhoids were moderate and Grade II (internal hemorrhoids that prolapse but reduce spontaneously). Impression: - Non-bleeding internal hemorrhoids. - No specimens collected. Recommendation: - Patient has a contact number available for emergencies. The signs and symptoms of potential delayed complications were discussed with the patient. Return to normal activities tomorrow. Written discharge instructions were provided to the patient. - Await pathology results. - Repeat colonoscopy at age 52 for screening purposes. - Return to my office at appointment to be scheduled. Procedure Code(s): --- Professional --- 30101, Colonoscopy, flexible; diagnostic, including collection of specimen(s) by brushing or washing, when performed (separate procedure) Diagnosis Code(s): --- Professional --- K64.1, Second degree hemorrhoids K92.1, Melena (includes Hematochezia) CPT copyright 2019 [employer]. All rights reserved. The codes documented in this report are preliminary and upon hot roll laminator review may be revised to meet current compliance requirements. Mike Churchill DO 04/11/2021 11:55:15 AM Electronically signed by Mike Churchill DO Number of Addenda: 0 Note Initiated On: 04/11/2021 11:34 AM Estimated Blood Loss: Estimated blood loss: none.
[2021-04-11 12:20] VITALS: BP 116/60
== END 2021-04-11 12:34 | disposition home or self-care (01) ==
LOC: M OPP 10:14
PROVIDERS: ATTEND Surgery
DX: K92.1 Melena (principal); K64.1 Second degree hemorrhoids; Z12.11 Encounter for screening for malignant neoplasm of colon

== ENCOUNTER → 2021-09-18 | Outpatient (CLI) | payer BC ==
[~2021-09-18] MED LIST changes: -CITA40TA4 PO; +CITA40TA7 PO; -NS 1,000 ML IV ONE
== END ==
LOC: M WHC 10:15
PROVIDERS: ATTEND Obstetrics & Gynecology
DX: N63.10 Unspecified lump in the right breast, unspecified quadrant (principal)
CPT/HCPCS: 76642; 77066; G0279

== ENCOUNTER → 2022-01-21 | Outpatient (REF) | LOC: M LABSMTC 11:06 | PROVIDERS: ATTEND Family Medicine | DX: Z11.52 Encounter for screening for COVID-19 (principal) ==

== ENCOUNTER 2022-10-05 22:34 | Day surgery (SDC) | payer BC ==
[~2022-10-05] VITALS: Ht 162.6 cm; Wt 84.4 kg
[2022-10-06] VITALS (7 sets, daily range): BP systolic 91–134; BP diastolic 50–83
[2022-10-06 00:29] LABS: BASO % 0.2 % (0.0-1.0); EOS # 0.2 10^3/uL (0.0-0.5); EOS % 1.7 % (0.0-3.0); HEMATOCRIT 38.9 % (36.0-47.0); HEMOGLOBIN 12.8 g/dl (12.0-15.5); LYMPH # 1.5 10^3/uL (1.5-5.0); LYMPH % 16.4 % (24.0-44.0); MEAN CORPUSCULAR HEMOGLOBIN 30.3 pg (27.0-33.0); MEAN CORPUSCULAR HGB CONC 32.9 g/dl (32.0-36.5); MONO # 0.8 10^3/uL (0.0-0.8); MONO % 8.2 % (2.0-8.0); NEUTROPHILS # 6.8 10^3/uL (1.5-8.5); NEUTROPHILS % 73.3 % (36.0-66.0); PLATELET COUNT, AUTOMATED 209 10^3/uL (150-450); RED BLOOD COUNT 4.23 10^6/uL (4.00-5.40); WHITE BLOOD COUNT 9.3 10^3/uL (4.0-10.0)
[2022-10-06 00:50] LABS: LIPASE 28 U/L (12-53)
[2022-10-06 00:53] LABS: ALBUMIN 4.1 G/DL (3.2-5.2); ALKALINE PHOSPHATASE 68 U/L (46-116); ALT/SGPT 21 U/L (7.0-40); AST/SGOT 16 U/L (<34); BILIRUBIN,DIRECT 0.2 MG/DL (<0.4); BILIRUBIN,TOTAL 0.5 MG/DL (0.3-1.2); BLOOD UREA NITROGEN 17 MG/DL (9-23); CALCIUM LEVEL 8.8 MG/DL (8.5-10.1); CARBON DIOXIDE LEVEL 29 MMOL/L (20-31); CHLORIDE LEVEL 106 MMOL/L (98-107); CREATININE FOR GFR 0.81 MG/DL (0.55-1.30); GLOMERULAR FILTRATION RATE > 60.0 (>60); GLUCOSE, FASTING 96 MG/DL (60-100); POTASSIUM SERUM 3.9 MMOL/L (3.5-5.1); SODIUM LEVEL 138 MMOL/L (136-145); TOTAL PROTEIN 7.2 G/DL (5.7-8.2)
[2022-10-06 01:42] LABS: APPEARANCE, URINE CLEAR (CLEAR); BACTERIA, URINE AUTO NEGATIVE (NEGATIVE); BILIRUBIN, URINE AUTO NEGATIVE (NEGATIVE); BLOOD, URINE BLOOD 1+ (NEGATIVE); COLOR, URINE YELLOW (YELLOW); GLUCOSE, URINE (UA) AUTO NEGATIVE (NEGATIVE); KETONE, URINE AUTO NEGATIVE (NEGATIVE); LEUKOCYTE ESTERASE, URINE AUTO NEGATIVE (NEGATIVE); MUCUS, URINE SMALL (NEGATIVE); NITRITE, URINE AUTO NEGATIVE (NEGATIVE); PROTEIN, URINE AUTO NEGATIVE (NEGATIVE); RBC, URINE AUTO 4 /HPF (0-3); SPECIFIC GRAVITY URINE AUTO 1.019 (1.002-1.035); SQUAMOUS EPITHELIAL CELL UR AU 2 /HPF (0-6); UROBILINOGEN, URINE AUTO 0.2 mg/dL (0.0-2.0); WBC, URINE AUTO 1 /HPF (0-3)
[2022-10-06] MEDS ORDERED: KETOROLAC 30 MG/ML 1ML VIAL IV ONE (04:25)
[2022-10-06] MEDS ORDERED: ISOVUE-370 76% 100ML VIAL As Ordered ONE (04:29)
[2022-10-06 05:46] LABS: HCG, SERUM QUALITATIVE NEGATIVE (NEGATIVE)
[2022-10-06] MEDS ORDERED: PIPERACILLIN/TAZOBACTAM SOD 3.375 GM in D5W MINI-BAG PLUS 50 ML IV ONE (08:05)
[2022-10-06] MEDS ORDERED: CITA40TA7 PO (08:22)
[2022-10-06] MEDS ORDERED: HOME MED LIST COMPLETE! XX SCH (08:25)
[2022-10-06] MEDS: NS 1,000 ML IV SCH ×2 (08:38→20:07)
[2022-10-06 09:30] LABS: RSV AMPLIFICATION NEGATIVE (NEGATIVE)
[2022-10-06] MEDS ORDERED: LIDOCAINE 1% SDV 30ML VIAL As Ordered ONE (14:07)
[2022-10-06] MEDS ORDERED: BUPIVACAINE HCL 0.25% 30ML VIAL As Ordered ONE (14:08)
[2022-10-06] MEDS ORDERED: OXYC1TAB23 PO (14:10)
[2022-10-06] MEDS ORDERED: LEVO750T14 PO (14:11)
[2022-10-06] MEDS ORDERED: METR-265 PO (14:12)
[2022-10-06] MEDS ORDERED: ZOSYN 3.375GM VIAL As Ordered ONE (14:25)
[2022-10-06] MEDS ORDERED: propofoL 200 MG/20 ML VIAL As Ordered ONE (14:25)
[2022-10-06] MEDS ORDERED: LIDOCAINE 2% 100MG/5ML SDV (FOR ANES.) As Ordered ONE (14:25)
[2022-10-06] MEDS ORDERED: fentaNYL 100 MCG/2 ML INJECTION As Ordered ONE (14:26)
[2022-10-06] MEDS ORDERED: MIDAZOLAM INJ 2MG/2ML VIAL As Ordered ONE (14:27)
[2022-10-06] MEDS ORDERED: ROCURONIUM BROMIDE 50MG/5ML VIAL As Ordered ONE (14:29)
[2022-10-06] MEDS ORDERED: KETOROLAC 60MG 2ML VIAL As Ordered ONE (17:50)
[2022-10-06] MEDS ORDERED: ACETAMINOPHEN 1000MG 100ML IV BAG As Ordered ONE (17:50)
[2022-10-06] MEDS ORDERED: SUGAMMADEX SODIUM 500 MG/5 ML VIAL (BRIDION) As Ordered ONE (17:50)
[2022-10-06] MEDS ORDERED: ONDANSETRON 4MG 2ML VIAL As Ordered ONE (17:50)
[2022-10-06] MEDS ORDERED: PERCOCET 5MG/325MG TAB PO PRN ×2 (18:35)
[2022-10-06] MEDS ORDERED: MORPHINE 4 MG/ML 1ML VIAL IV PRN (18:35)
[2022-10-06] MEDS ORDERED: ONDANSETRON 4MG 2ML VIAL IV PRN (18:35)
[2022-10-06] MEDS ORDERED: ACETAMINOPHEN TAB 650MG DOSE (2X325MG) PO PRN (18:35)
[2022-10-06] MEDS ORDERED: PIPERACILLIN/TAZOBACTAM SOD 3.375 GM in D5W MINI-BAG PLUS 50 ML IV SCH ×2 (19:00→21:00)
[2022-10-06] MEDS: metroNIDAZOLE (FLAGYL) 500MG TABLET PO SCH (20:39)
[2022-10-06] MEDS ORDERED: LevoFLOXacin 750 MG TABLET PO SCH (21:00)
[2022-10-06] MEDS: KETOROLAC 30 MG/ML 1ML VIAL IV SCH (23:56)
[2022-10-07] MEDS: NS 1,000 ML IV SCH (03:52)
[2022-10-07 04:00] VITALS: BP 106/64
[2022-10-07 06:05] VITALS: BP 91/53
[2022-10-07] MEDS: metroNIDAZOLE (FLAGYL) 500MG TABLET PO SCH (06:35)
[2022-10-07] MEDS: KETOROLAC 30 MG/ML 1ML VIAL IV SCH ×2 (06:35→12:35)
[2022-10-07] MEDS ORDERED: CitaloPRAM (CeleXA) 20 MG TAB PO SCH (09:00)
== END 2022-10-07 13:00 | disposition home or self-care (01) ==
LOC: M ED 22:34 → M SDC 22:35 → M OBS 10-06 09:10 → M SDC 10-07 13:00
PROVIDERS: ATTEND Surgery
DX: K35.30 Acute appendicitis with localized peritonitis, without perforation or gangrene (principal); F32.9 Major depressive disorder, single episode, unspecified; F41.9 Anxiety disorder, unspecified; Z79.899 Other long term (current) drug therapy
CPT/HCPCS: 44970; 74177; 80048; 80076; 81001; 83690; 84703; 85025; 87631; 88304; 96361; 96365; 96375; 96376; 99285; J0131; J1100; J1885; J2250; J2405; J2543; J3010; Q9967; S0020

== ENCOUNTER → 2023-01-20 | Outpatient (REF) | payer BC ==
[~2023-01-20] MED LIST changes: +LEVO750T14 PO; +METR-265 PO; +OXYC1TAB23 PO
[2023-01-20 17:44] LABS: HEMATOCRIT 39.1 % (36.0-47.0); HEMOGLOBIN 13.2 g/dl (12.0-15.5); MEAN CORPUSCULAR HEMOGLOBIN 30.8 pg (27.0-33.0); MEAN CORPUSCULAR HGB CONC 33.8 g/dl (32.0-36.5); MEAN CORPUSCULAR VOLUME 91.1 fl (80.0-96.0); PLATELET COUNT, AUTOMATED 232 10^3/uL (150-450); RED BLOOD COUNT 4.29 10^6/uL (4.00-5.40); WHITE BLOOD COUNT 7.7 10^3/uL (4.0-10.0)
[2023-01-20 18:35] LABS: HIV 1&2 SCREEN NEGATIVE (NEGATIVE)
[2023-01-20 18:44] LABS: HEPATITIS C VIRUS ABY INDEX 0.14 INDEX (<0.8)
[2023-01-20 18:47] LABS: GC DNA AMPLIFICATION NEGATIVE (NEGATIVE)
== END ==
LOC: M PLALAB 09:48
PROVIDERS: ATTEND Specialist
DX: Z34.81 Encounter for supervision of other normal pregnancy, first trimester (principal)

== ENCOUNTER → 2023-03-18 | Outpatient (CLI) | payer BC | LOC: M WHC 08:01 | PROVIDERS: ATTEND Obstetrics & Gynecology | DX: O34.211 Maternal care for low transverse scar from previous cesarean delivery (principal); Z3A.19 19 weeks gestation of pregnancy ==

== ENCOUNTER → 2023-03-31 | Outpatient (CLI) | payer BC ==
[2023-03-31 17:09] LABS: GC DNA AMPLIFICATION NEGATIVE (NEGATIVE)
== END ==
LOC: M PLALAB 12:04
PROVIDERS: ATTEND Advanced Practice Midwife
DX: Z34.92 Encounter for supervision of normal pregnancy, unspecified, second trimester (principal)

== ENCOUNTER → 2023-03-31 | Outpatient (REF) | payer BC | LOC: M PLALAB 11:48 | PROVIDERS: ATTEND Advanced Practice Midwife | DX: Z34.92 Encounter for supervision of normal pregnancy, unspecified, second trimester (principal); Z53.9 Procedure and treatment not carried out, unspecified reason ==

== ENCOUNTER → 2023-05-05 | Outpatient (CLI) | payer BC ==
[2023-05-05 11:24] LABS: BASO % 0.2 % (0.0-1.0); EOS # 0.2 10^3/uL (0.0-0.5); EOS % 2.5 % (0.0-3.0); HEMATOCRIT 34.7 % (36.0-47.0); HEMOGLOBIN 11.4 g/dl (12.0-15.5); LYMPH # 1.8 10^3/uL (1.5-5.0); LYMPH % 20.3 % (24.0-44.0); MEAN CORPUSCULAR HEMOGLOBIN 31.5 pg (27.0-33.0); MEAN CORPUSCULAR HGB CONC 32.9 g/dl (32.0-36.5); MEAN CORPUSCULAR VOLUME 95.9 fl (80.0-96.0); MONO # 0.7 10^3/uL (0.0-0.8); MONO % 7.7 % (2.0-8.0); NEUTROPHILS % 68.8 % (36.0-66.0); PLATELET COUNT, AUTOMATED 255 10^3/uL (150-450); RED BLOOD COUNT 3.62 10^6/uL (4.00-5.40); WHITE BLOOD COUNT 8.8 10^3/uL (4.0-10.0)
[2023-05-05 13:07] LABS: CHLAMYDIA DNA AMPLIFICATION NEGATIVE (NEGATIVE); GC DNA AMPLIFICATION NEGATIVE (NEGATIVE)
== END ==
LOC: M PLALAB 07:50
PROVIDERS: ATTEND Advanced Practice Midwife
DX: Z34.92 Encounter for supervision of normal pregnancy, unspecified, second trimester (principal)

== ENCOUNTER → 2023-06-04 | Outpatient (CLI) | payer BC | LOC: M PLALAB 12:32 | PROVIDERS: ATTEND Advanced Practice Midwife | DX: O09.523 Supervision of elderly multigravida, third trimester (principal); Z3A.00 Weeks of gestation of pregnancy not specified ==

== ENCOUNTER → 2023-06-05 | Outpatient (CLI) | payer BC | LOC: M WHC 15:25 | PROVIDERS: ATTEND Advanced Practice Midwife | DX: O09.523 Supervision of elderly multigravida, third trimester (principal); Z3A.31 31 weeks gestation of pregnancy ==

== ENCOUNTER → 2023-07-03 | Outpatient (REF) | payer BC | LOC: M PLALAB 11:31 | PROVIDERS: ATTEND Advanced Practice Midwife | DX: O09.523 Supervision of elderly multigravida, third trimester (principal) ==

== ENCOUNTER → 2023-07-11 | Outpatient (CLI) | payer BC | LOC: M WHC 10:31 | PROVIDERS: ATTEND Advanced Practice Midwife | DX: O09.523 Supervision of elderly multigravida, third trimester (principal); Z3A.35 35 weeks gestation of pregnancy ==

== ENCOUNTER → 2024-09-10 | Outpatient (CLI) | payer OTHER ==
[~2024-09-10] MED LIST changes: +COLA100C5 PO; +IBUP80TA PO; -LEVO750T14 PO; +LEVO75TAB PO; +MULTTAB20 PO; +OMEP1CAP73 PO; +ONDA-282 PO; -ONDA4TAB6 PO; +PERCOCET PO
[2024-09-10 08:19] LABS: BASO % 0.3 % (0.0-1.0); EOS # 0.2 10^3/uL (0.0-0.5); EOS % 2.2 % (0.0-3.0); HEMATOCRIT 41.5 % (36.0-47.0); HEMOGLOBIN 13.1 g/dl (12.0-15.5); LYMPH # 2.1 10^3/uL (1.5-5.0); LYMPH % 27.7 % (24.0-44.0); MEAN CORPUSCULAR HEMOGLOBIN 28.9 pg (27.0-33.0); MEAN CORPUSCULAR HGB CONC 31.6 g/dl (32.0-36.5); MEAN CORPUSCULAR VOLUME 91.4 fl (80.0-96.0); MONO # 0.5 10^3/uL (0.0-0.8); NEUTROPHILS # 4.7 10^3/uL (1.5-8.5); NEUTROPHILS % 62.5 % (36.0-66.0); PLATELET COUNT, AUTOMATED 259 10^3/uL (150-450); RED BLOOD COUNT 4.54 10^6/uL (4.00-5.40); WHITE BLOOD COUNT 7.4 10^3/uL (4.0-10.0)
[2024-09-10 08:26] LABS: ALBUMIN 3.9 G/DL (3.2-5.2); BILIRUBIN,TOTAL 0.3 MG/DL (0.3-1.2); CALCIUM LEVEL 8.8 MG/DL (8.5-10.1); CREATININE FOR GFR 0.89 MG/DL (0.55-1.30); GLOMERULAR FILTRATION RATE 83.5 (>58); PERCENT SATURATION 12.7 % (13.2-45.0); POTASSIUM SERUM 3.9 MMOL/L (3.5-5.1); TOTAL PROTEIN 7.3 G/DL (5.7-8.2)
[2024-09-10 08:28] LABS: FERRITIN 11.1 NG/ML (7.3-270.7); THYROID STIMULATING HORMONE 3.207 uIU/ML (0.55-4.78)
[2024-09-10 08:29] LABS: FREE T4 1.03 NG/DL (0.89-1.76)
== END ==
LOC: M LAB 07:25
PROVIDERS: ATTEND Nurse Practitioner Family
DX: Z00.00 Encounter for general adult medical examination without abnormal findings (principal); F41.9 Anxiety disorder, unspecified; G93.32 Myalgic encephalomyelitis/chronic fatigue syndrome